=== PATIENT | female | born 1955 | race Caucasian/White ===

== ENCOUNTER 2016-08-11 23:43 | Observation (INO) | payer OTHER ==
[~2016-08-11] VITALS: Ht 172.7 cm; Wt 88.1 kg
--- NOTE | 2016-08-12 02:34 | ER ---
ADMIT: 08/11/2016 RM/LOC: ER [facility] MR#: [id number] [address] [address] ANA[address]ID [address] [place] [address] Emergency Room Report SEX: F AGE: 61 : 1955 DATE: 08/12/2016 CHIEF COMPLAINT: Right upper quadrant pain. HISTORY OF PRESENT ILLNESS: The patient is a 61-year-old female, complaining of intermittent right upper quadrant abdominal pain associated with nausea, fevers, chills for the past 3 weeks, typically with high-fat, high-protein foods. Tonight, had a hamburger which exacerbated her pain. No prior history of biliary colic. PAST MEDICAL HISTORY: ILLNESSES: Hypoglycemia, treated with diet. OPERATIONS: Right rotator cuff, total knee arthroplasty, appendectomy. ALLERGIES: NONE. MEDICATIONS: None. SOCIAL HISTORY: . Nonsmoker. Nondrinker. No illicit drugs. FAMILY HISTORY: Negative for gallbladder disease, kidney stones, or aneurysms. REVIEW OF SYSTEMS: A 12-point review of systems negative for all other systems, illnesses, or operations except as outlined above. PHYSICAL EXAMINATION: VITAL SIGNS: Temperature 97.3, pulse 78, respirations 20, BP 150/93, SaO2 of 95% on room air. GENERAL: Nontoxic, non-diaphoretic without jaundice or icterus. HEENT: Normocephalic. No evidence of epistaxis, rhinorrhea, or otorrhea. NECK: Supple without lymphadenopathy or thyromegaly. CHEST: Clear. Breath sounds equal. HEART: Regular rate and rhythm without murmur, gallop, or edema. ABDOMEN: Exquisitely tender right upper quadrant without mass or megaly. Bowel sounds hypoactive. BACK: Right CVA tenderness. NEURO: EOMI. PERRLA. No evidence of drift, dysarthria, or ataxia. Gait antalgic. 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 No obvious dilated ducts. Normal CBC, CMP, except for lipase 11,105. Normal bilirubin, but elevated alkaline phosphatase, AST, ALT. Lactic 1.1, CRP 0.38. Normal troponin and BNP. UA, pending. The patient was given IV fluids, Zofran, Toradol, Dilaudid, Protonix with relief of pain. Zosyn 3.375 g IV ADMIT: 08/11/2016 RM/LOC: [facility] MR#: [id number] [address] [address] [place] [address] Emergency Room Report SEX: F AGE: 61 : 1955 piggyback in department and every 6 hours on floor. Discussed case with Dr. Cunha, who agreed and gave orders to nursing staff. DIAGNOSES: Akjta-gl-njhbmaw cholecystitis and likely choledocholithiasis. RECOMMENDATION: Admit inpatient Med/Surg for Dr. Lucio. ADMISSION/DISCHARGE CONDITION: Stable. CODE STATUS: The patient is a full code. Zackery Bucio MD/ giannil JOB #: [id number] CC: Zackery Bucio MD, Attending Physician Lindsey Lucio MD, Family Physician Lindsey Lucio MD
--- NOTE | 2016-08-13 08:19 | HP ---
ADMIT: 08/12/2016 RM/LOC: 8 [facility] MR#: [id number] 2620 [facility] [address] [place], [place] [address] ANA[address] REID [address] [place] [address] History and Physical SEX: F AGE: 61 : 1955 DATE OF SERVICE: REASON FOR ADMISSION: Abdominal pain. She reports that she has been having intermittent abdominal pain, abdominal discomfort, flu-like symptoms over the last month. At time, significantly worse. She presents to the emergency room with significant pain and discomfort in her generalized abdomen. One episode of nausea and vomiting. In the ER, she was found to have evidence of on CT evidence of cholelithiasis paracolic fluid consistent with cholecystitis as well as bowel wall thickening in the sigmoid colon admitted for further evaluation and care. PAST MEDICAL HISTORY: Includes a history of appendectomy, bunionectomy, total knee, right shoulder surgery, varicose vein surgery. She has no significant other health problems. MEDICATIONS: Not on any home medications. ALLERGIES: SHE HAS NONE KNOWN MEDICAL ALLERGIES. FAMILY HISTORY: Her father has a history of colon cancer. SOCIAL HISTORY: She smoked quit in 2012, occasional alcohol. PHYSICAL EXAMINATION: GENERAL: She is alert, articulate. Systolic blood pressures in the 110. She is in pain. She is more comfortable at this time complaining of abdominal pain and abdominal discomfort. HEART: Regular rhythm. ABDOMEN: Rounded, tender. EXTREMITIES: No edema. LABORATORY DATA: Her lab work shows sodium of 142, potassium 3.6, BUN and creatinine 6 and 0.8. Blood sugar 135, AST 308, ALT 235, and lipase 11,000. White count 6.8, hemoglobin 13.8, platelet count 299,000. Lactic acid 1.1. ADMIT: 08/12/2016 RM/LOC: 8 [facility] MR#: [id number] [address] [address] A[address] [place] [address] History and Physical SEX: F AGE: 61 : 1955 [address] cholelithiasis with paracolic fluid, cholecystitis, bowel wall thickening in the sigmoid colon. ASSESSMENT: Admission of a 61-year-old, white female with recurrent abdominal pain, nausea, evidence of cholelithiasis, acute cholecystitis, gallstone pancreatitis. We will ask Surgery to see. She is n.p.o. at this time. We will get an ultrasound of her abdomen and reassess her labs this morning. Also a lipid panel in the morning. Evidence of sigmoid wall thickening. At this time, with a family history of colon cancer, we will get a medical records from our clinic to see when her last colonoscopy was and when the reports are. We will continue to follow closely. Supportive care at this time. She is on IV antibiotics of Zosyn. Lindsey Lucio MD/ anna JOB #: [id number] CC: Lindsey Lucio, Attending Physician Lindsey Lucio, Family Physician
[2016-08-14] MEDS ORDERED: NORCO 5-325 TA1 EACH PO (18:41)
--- NOTE | 2016-09-05 11:47 | CO ---
ADMIT: 08/12/2016 RM/LOC: 618 [facility] MR#: [id number] [facility]#: [id number] [address] [facility] [address] [place] [id number] A[address] [place] [address] Consultation SEX: F AGE: 61 : 1955 DATE OF CONSULTATION: 08/12/2016 ATTENDING PHYSICIAN: Lindsey Lucio CONSULTING PHYSICIAN: Ebenezer Cobb MD REASON FOR CONSULTATION: Gallstone pancreatitis. HISTORY OF PRESENT ILLNESS: This patient is a very pleasant 61-year-old female, who sounds like she has been having off and on for the last several weeks right upper quadrant abdominal pain. There has probably been her gallbladder bothering her. 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 Elevated lipase greater than 11,000. AST and ALT are mildly elevated. Bilirubin is normal. White count is okay. Her pain is improving at this point, but obviously not totally gone. PAST MEDICAL HISTORY: Significant for hypoglycemia. She has had history of rotator cuff, total knee arthroplasty, appendectomy. It looks like she had a colonoscopy in 2011 with benign polyps at that time. ALLERGIES: SHE HAS NO KNOWN DRUG ALLERGIES. MEDICATIONS: She takes no current medications. SOCIAL HISTORY: She is , does not drink, does not smoke, no illicit drugs. FAMILY HISTORY: Negative for anything otherwise significant. REVIEW OF SYSTEMS: Positive for the above GI and epigastric abdominal complaints. Otherwise negative. PHYSICAL EXAMINATION: VITAL SIGNS: Afebrile. Vital signs are stable. HEENT: Her sclerae are nonicteric. Extraocular muscles are intact. CHEST: Appears clear anteriorly. Regular rate without wheezes or rhonchi. HEART: Regular rate and rhythm without murmurs. ABDOMEN: Positive Armstrong's with epigastric tenderness. No diffuse peritoneal ADMIT: 08/12/2016 RM/LOC: 618 [facility] MR#: [id number] [address] [facility] [address] [place] [phone] ANA[address] [place] [address] Consultation SEX: F AGE: 61 : 1955 signs. No obvious mass or organomegaly. EXTREMITIES: Without clubbing, cyanosis, or edema. ASSESSMENT AND PLAN: At this time, the plan will be to let her pancreatitis settles down a little bit hopefully over the next 24 hours. If her enzymes are trending down hopefully tomorrow versus the following day, we would plan on doing a laparoscopic cholecystectomy with intraoperative cholangiogram. I did visit with her about the possibility of having common bile duct stones what that would entail. May need transferred for an ERCP following her lap trudy if that is the case. She understands all this and wishes to proceed. Ebenezer Cobb MD/ anna JOB #: [id number] CC: Lindsey Lucio, Attending Physician Lindsey Lucio, Family Physician Tyree Cunha MD
--- NOTE | 2016-09-11 11:41 | OR ---
ADMIT: 08/12/2016 RM/LOC: 618 [facility] MR#: [id number] 2620 [facility] [address] [place] [phone] ANAND REDI [address] [place] [address] Operative/Delivery Room Report SEX: F AGE: 61 : 1955 Corrected: 08/14/2016 0628 [facility] SURGERY DATE: 08/13/2016 SURGEON: Tyree Barahona MD LEAD PROJECT ENGINEER: BONITA Shannon. PRE PROCEDURE DIAGNOSIS: Gallstone pancreatitis. POSTPROCEDURE DIAGNOSIS: Gallstone pancreatitis. PROCEDURE: Laparoscopic cholecystectomy with intraoperative cholangiogram. INDICATIONS: The patient is a 61-year-old who presents with signs, symptoms, and radiographic evidence consistent with gallstone pancreatitis who presents for laparoscopic cholecystectomy. FINDINGS: The patient was taken to the operative room, general endotracheal anesthesia was induced. The patient's abdomen was prepped and draped in normal sterile fashion. The case was begun by making a transverse, supraumbilical 5 mm skin incision using #11 blade. A retractable 5 mm port was placed within the abdomen. The abdomen was insufflated with CO2 to an intra-abdominal pressure of 15 mmHg. A camera was placed showing no bowel or vascular injury. A midepigastric 11 mm port as well as 2 right upper quadrant 5 mm ports were placed under direct vision. The case was begun by grabbing the fundus of the gallbladder using an atraumatic clamps. A [place] instrument with electrocautery was used to dissect omental adhesions off the gallbladder body and infundibulum. A second atraumatic clamp was then used to grasp the infundibulum. A [place] instrument with electrocautery was used to dissect out the cystic duct and artery without difficulty. A proximal clip was placed at the duct. The duct was cut in half. A cholangiogram catheter was placed and a cholangiogram was shot showing no filling defects with easy contrast flow into the duodenum as well as intrahepatic ductal filling of contrast. The cholangiogram catheter was then removed. Two distal cystic duct clips were applied. Remainder of the duct was then severed. Two proximal, one distal cystic arterial clips were applied and the artery was severed. The remainder of dissection was then carried out using electrocautery from a posterior to anterior fashion, removing the gallbladder from liver bed. The gallbladder was placed in an EndoCatch bag and brought out through the midepigastric port ADMIT: 08/12/2016 RM/LOC: 618 [facility] MR#: [id number] [address] [address] [place] [address] Operative/Delivery Room Report SEX: F AGE: 61 : 1955 site. On reexamination of the operative site, there was a mild amount of liver bed, bleeding controlled with electrocautery. The air was then irrigated and suctioned out. There was no bile leakage. No bleeding. A 0.5% Marcaine was injected subdermally, subfascially for postoperative analgesia. The midepigastric fascial incision was closed with [id number] 0 Polysorb suture passer. The air was desufflated. The port sites removed. The skin sites were closed with interrupted 4-0 Vicryl subcuticular skin stitches. Wounds were cleaned and dried. Steri-Strips and Tegaderm were applied over the top. Needle, sponge, and instrument counts were correct at the end of the case. The patient was extubated, wheeled to recovery room in good condition. Tyree Barahona MD/ anna JOB #: [id number] CC: Lindsey Lucio, Attending Physician Lindsey Lucio, Family Physician Corrected: 08/14/2016 0628 [facility]
== END 2016-08-13 15:40 | disposition home or self-care (01) ==
LOC: ER 23:43 → 6PED 08-12 00:47
PROVIDERS: ADMIT Internal Medicine
PROC: BF12YZZ Fluoroscopy of Gallbladder using Other Contrast (ICD-10-PCS; principal; 2016-08-13)
PROC: 0FT44ZZ Resection of Gallbladder, Percutaneous Endoscopic Approach (ICD-10-PCS; principal; 2016-08-13)
DX: K80.12 Calculus of gallbladder with acute and chronic cholecystitis without obstruction (principal); M19.90 Unspecified osteoarthritis, unspecified site; Z90.49 Acquired absence of other specified parts of digestive tract; Z87.891 Personal history of nicotine dependence; Z98.890 Other specified postprocedural states